=== PATIENT | male | born 1960 | race African-American/Black ===

== ENCOUNTER 2017-12-24 06:29 | Day surgery (SDC) | payer OTHER ==
[2017-12-15 14:41] VITALS: BMI 21.6
[2017-12-24] MEDS ORDERED: MIDAZOLAM HCL 2 MG/2 ML SINGLE DOSE VIAL ONE (07:34)
[2017-12-24] MEDS ORDERED: ROPIVACAINE HCL 0.5% 30ML VIAL ONE (07:34)
[2017-12-24] MEDS ORDERED: DEXAMETHASONE SOD PHOSPHATE/PF 10 MG/ML SDV ONE (07:34)
[2017-12-24] MEDS ORDERED: PROPOFOL 40 ML ONE (08:57)
[2017-12-24] MEDS ORDERED: PROPOFOL 20 ML ONE ×2 (08:58)
[2017-12-24] MEDS ORDERED: ceFAZolin SODIUM 1 GM VIAL ONE (09:18)
[2017-12-24] MEDS ORDERED: GUM MASTIC/STORAX/MSAL/ALCOHOL 1 DRP DROPSBTL MC ONE (10:13)
[2017-12-24 11:21] VITALS: TEMP 97.8
[2017-12-24 12:26] VITALS: BP 147/88; PULSE 80
--- NOTE | 2017-12-25 01:46 | OP ---
DATE OF OPERATION: 12/24/2017 PREOPERATIVE DIAGNOSIS: Left comminuted intraarticular displaced distal radius fracture. POSTOPERATIVE DIAGNOSIS: Left comminuted intraarticular displaced distal radius fracture. OPERATIVE PROCEDURE: 1. Open reduction internal fixation of left comminuted intraarticular displaced distal radius fracture with internal fixation of 3 or more fragments. 2. Left brachioradialis tenotomy. SURGEON: Jaspal Grant MD SAFETY TECHNICIAN: Savage Mcneill PA-C, [facility] ANESTHESIA: Regional. COMPLICATIONS: None. ESTIMATED BLOOD LOSS: Minimal. INDICATIONS FOR THE PROCEDURE: The patient is a 57-year-old male with the above findings indicated for operative treatment. Risks, benefits, and alternatives were discussed with the patient at length. Proper informed consent was obtained. PROCEDURE: After proper identification of the patient and the correct operative site, the patient was brought to the operating room and placed supine on the table with all prominences well padded. Regional anesthesia was adequate for the procedure. The left upper extremity was prepped and draped in the usual sterile fashion. A well-padded tourniquet was placed under sterile prep. Intravenous antibiotics were given. Timeout procedure was performed. Esmarch bandage was used to exsanguinate the left upper extremity. Tourniquet inflated to 250 mmHg. A lateral incision was made over the volar aspect of the wrist. Incision was taken sharply through the skin with blunt and sharp dissection of the subcutaneous tissues. Flexor carpi radialis tendon along with the contents of the carpal canal were bluntly and gently retracted in an ulnarward direction for the remainder of the procedure. The pronator quadratus was incised longitudinally and elevated off of the distal radius. Comminuted fracture was noted. Reduction was not fully possible due to the pull of the brachial radialis. Therefore, a brachialis tenotomy was performed in the subperiosteal fashion. This allowed full reduction of the fracture, which was then held with an Acumed Acu-Loc 2 distal radius plate with distal locking screws and proximal nonlocking screws. This provided secure stable fixation of the fracture. X-rays were taken in multiple planes to confirm proper placement and sizing of all hardware as well as reduction of fracture. Scapholunate interval as well as distal radial and ulnar joints were stressed and found to be stable. The wound was irrigated with saline and repaired in layers including the pronator quadratus. Sterile dressings and a splint were applied. Patient was reversed from anesthesia and brought to the recovery room in stable condition. He tolerated the procedure well. Savage Mcneill, the assistant hvac mechanic, was integral throughout the procedure. The procedure could not have been performed without a skilled operative assistant hvac mechanic. JASPAL GRANT M.D. [id number]
== END 2017-12-24 12:10 | disposition home or self-care (01) ==
LOC: FASU 06:29
PROVIDERS: ATTEND Orthopaedic Surgery Hand Surgery
PROC: 0LN60ZZ Release Left Lower Arm and Wrist Tendon, Open Approach (ICD-10-PCS; 2017-12-24)
PROC: 0PSJ04Z Reposition Left Radius with Internal Fixation Device, Open Approach (ICD-10-PCS; principal; 2017-12-24 09:22)
DX: S52.532A Colles' fracture of left radius, initial encounter for closed fracture (principal); X58.XXXA Exposure to other specified factors, initial encounter; Y93.9 Activity, unspecified; Y92.9 Unspecified place or not applicable
CPT/HCPCS: 73110-TC-LR-FY